=== PATIENT | female | born 1935 | race Caucasian/White ===

== ENCOUNTER 2018-09-11 18:32 | Inpatient (IN) | payer MEDICARE, BC ==
[~2018-09-11] VITALS: Ht 167.6 cm; Wt 64.7 kg
[~2018-09-11 18:32] MED LIST: CALC-20 PO; DONE5TAB34 PO; QUET25TA PO
--- NOTE | 2018-09-11 18:40 | NUR ---
CYNTHIA FOWLER fron SNF for SP fall, eval for BLE. Patient is awake, but unable to assess orientation at this time, tracks voice and smiles but does not follow commands.
--- NOTE | 2018-09-11 19:05 | NUR ---
RECEIVED REPORT FROM ERVIN LARA FOR DIPAK. PT IS AAOX0, NOT IN RESPIRATORY DISTRESS, V/S STABLE, WILL CONTINUE TO MONITOR.
--- NOTE | 2018-09-11 19:08 | NUR ---
SEEN AND EXAMINED BY DR. MANNING.
--- NOTE | 2018-09-11 19:22 | NUR ---
URINE SPECIMEN OBTAINED VIA STRAIGHT CATH.
[2018-09-11 19:25] LABS: APPEARANCE,URINE Clear (CLEAR); BILIRUBIN,URINE Negative (NEGATIVE); BLOOD, URINE Negative Ery/uL (NEGATIVE); COLOR,URINE Yellow (YELLOW); KETONES,URINE Negative (NEGATIVE); LEUKOCYTE ESTERASE ,URINE Negative (NEGATIVE); NITRITE, URINE Negative (NEGATIVE); PH,URINE 5.5 (5.0-8.0); PROTEIN,URINE 30 mg/dl (NEGATIVE); UGLUCOSE Negative (NEGATIVE); UROBILINOGEN,URINE 0.2 EU/dL (0.2)
[2018-09-11 19:34] LABS: BACTERIA,URINE None seen /HPF (None Seen); RBC,URINE 0-2 /HPF (0-2); SQUAMOUS EPITHELIAL CELL,UR Few /HPF (None Seen); WBC,URINE 0-2 /HPF (0-3)
--- NOTE | 2018-09-11 19:35 | NUR ---
VETERINARY SURGEON AT BEDSIDE FOR XRAY.
--- NOTE | 2018-09-11 20:10 | NUR ---
IV LINE ESTABLISHED, BLOOD DRAW AND SENT TO LAB.
[2018-09-11 20:14] LABS: BASOPHILS # (AUTO) 0.1 /CMM (0.0-0.2); BASOPHILS % (AUTO) 0.7 % (0.0-2.0); EOSINOPHILS % (AUTO) 0.9 % (0.0-6.0); HEMATOCRIT 40 % (33-45); HEMOGLOBIN 13.1 g/dL (11.5-14.8); LYMPHOCYTES # (AUTO) 2.1 /CMM (0.8-4.8); LYMPHOCYTES % (AUTO) 13.5 % (20.0-44.0); MEAN CORPUSCULAR HGB CONC 33 g/dl (31.0-36.0); MEAN CORPUSCULAR VOLUME 84 fL (82-100); MONOCYTES # (AUTO) 1.2 /CMM (0.1-1.30); MONOCYTES % (AUTO) 7.7 % (2.0-12.0); NEUTROPHILS # (AUTO) 11.9 /CMM (1.8-8.9); NEUTROPHILS % (AUTO) 77.2 % (43.0-81.0); PLATELET COUNT (AUTO) 206 /CMM (150-450); RED BLOOD CELL COUNT(AUTO) 4.77 MIL/uL (4.0-5.2); WHITE BLOOD COUNT (AUTO) 15.4 K/uL (4.3-11.0)
[2018-09-11 20:38] LABS: CARBON DIOXIDE 21 mmol/L (21-32); CHLORIDE 107 mmol/L (98-107); CREATININE 1.1 mg/dL (0.6-1.3); GLUCOSE 166 mg/dL (74-106); POTASSIUM 3.8 mmol/L (3.5-5.1); SODIUM SERUM 142 mmol/L (136-145); UREA NITROGEN, BLOOD 24 mg/dL (7-18)
--- NOTE | 2018-09-11 20:41 | NUR ---
PT ASSIGNED TO 309-1
--- NOTE | 2018-09-11 20:48 | NUR ---
REPORT GIVEN TO AIDA FOR DIPAK.
--- NOTE | 2018-09-11 20:50 | NUR ---
SEEN AND EXAMINED BY DR. FINN.
[2018-09-11] MEDS ORDERED: MORPHINE SULFATE INJ 2 MG/ML DISP.SYRIN IV PRN (21:00)
[2018-09-11] MEDS ORDERED: ONDANSETRON HCL/PF 4 MG/2 ML VIAL IVP PRN (21:00)
[2018-09-11] MEDS ORDERED: ACETAMINOPHEN 650 MG/SUPP.RECT RC PRN (21:00)
[2018-09-11] MEDS ORDERED: ENOXAPARIN SODIUM 40 MG/0.4 ML DISP.SYRIN SQ SCH (21:00)
[2018-09-11 21:05] VITALS: BP 107/50
--- NOTE | 2018-09-11 21:20 | NUR ---
MORTGAGE LOAN ASSISTANT NOTES PATIENT ARRIVED ON THE UNIT AT 2109. PATIENT IS CROATIAN SPEAKING. PATIENT IS MOSTLY UNRESPONSIVE WHEN ASKED QUESTIONS. PATIENT JUST STARES AT ME. PATIENT MUMBLES TO HERSELF. SO SIGNS OF RESPIRATORY DISTRESS. NO SIGNS OF SOB. NO FACIAL GRIMACING INDICATING PAIN AT THIS TIME. SAFETY PRECAUTIONS IMPLEMENTED. CALL LIGHT WITHIN REACH. WILL CONTINUE TO MONITOR THROUGHOUT THE SHIFT.
[2018-09-11 21:55] VITALS: BP 107/50
[2018-09-11] MEDS: IV D5/0.45 NACL 1,000 ML IV PRN (23:32)
--- NOTE | 2018-09-12 00:53 | NUR ---
RN NOTES PATIENT IS UNRESPONSIVE WHEN I AM TALKING TO HER. I WAS SPEAKING IN BOTH BENGALI AND ARMENIAN. PATIENT HAS FLAT AFFECT. PATIENT MUMBLES AT TIMES WHEN LEFT ALONE. WILL CONTINUE TO MONITOR PATIENT.
--- NOTE | 2018-09-12 00:54 | NUR ---
RN NOTES PATIENT DOES NOT SPEAK CHILEAN. PATIENT UNDERSTANDS MALAGASY. PATIENT RESPONDS "YES OR NO" TO EVERY QUESTION ALTHOUGH SOME QUESTIONS DO NOT PERTAIN TO YES/NO. PATIENT HAS FLAT AFFECT. WILL CONTINUE TO MONITOR PATIENT.
[2018-09-12 02:21] VITALS: BP 126/53
--- NOTE | 2018-09-12 04:30 | NUR ---
RN NOTES FAMILY CONSENT FROM DAUGHTERMEGAN, OBTAINED VIA TELEPHONE. ERVIN AGUILLON AND ERVIN PARRA VERIFIED CONSENT FOR LEFT HIP HEMIARTHROPLASTY PROCEDURE, ANESTHESIA, BLOOD TRANSFUSION. DAUGHTERMEGAN, WILL VISIT BEFORE THE PROCEDURE. CONTACT # IS [phone]. WILL ENDORSE TO ONCOMING SHIFT.
--- NOTE | 2018-09-12 06:14 | NUR ---
RN CLOSING NOTES PATIENT IS RESTING COMFORTABLY IN BED AT THIS TIME. NO SIGNS OF RESPIRATORY DISTRESS. NO SIGNS OF SOB. NO SIGNS OF FACIAL GRIMACING AT THIS TIME. IV SITE IS INTACT, PATENT, RUNNING WELL. SKIN IS INTACT. ALL NEEDS MET. ALL MEDS GIVEN AT THIS TIME. SAFETY PRECAUTIONS IMPLEMENTED. CALL LIGHT WITHIN REACH. CONSENT FOR LEFT HIP HEMIARTHROPLASTY PROCEDURE, BLOOD TRANSFUSION, AND ANESTHESIA WAS OBTAINED AT 0430 VIA PHONE VERIFICATION FROM 2 RN'S, AIDA AND HENNA WITNESSING CONSENT FROM DAUGHTER, MEGAN RENDON. WILL ENDORSE TO AM SHIFT FOR CONTINUITY OF CARE.
[2018-09-12 06:19] LABS: BASOPHILS # (AUTO) 0.1 /CMM (0.0-0.2); BASOPHILS % (AUTO) 0.9 % (0.0-2.0); EOSINOPHILS % (AUTO) 2.1 % (0.0-6.0); HEMATOCRIT 38 % (33-45); LYMPHOCYTES # (AUTO) 1.7 /CMM (0.8-4.8); LYMPHOCYTES % (AUTO) 14.6 % (20.0-44.0); MEAN CORPUSCULAR HGB CONC 32 g/dl (31.0-36.0); MEAN CORPUSCULAR VOLUME 83 fL (82-100); MONOCYTES # (AUTO) 1.1 /CMM (0.1-1.30); MONOCYTES % (AUTO) 9.1 % (2.0-12.0); NEUTROPHILS # (AUTO) 8.5 /CMM (1.8-8.9); NEUTROPHILS % (AUTO) 73.3 % (43.0-81.0); PLATELET COUNT (AUTO) 176 /CMM (150-450); RED BLOOD CELL COUNT(AUTO) 4.54 MIL/uL (4.0-5.2); WHITE BLOOD COUNT (AUTO) 11.6 K/uL (4.3-11.0)
[2018-09-12 06:40] LABS: CALCIUM, SERUM 8.1 mg/dL (8.5-10.1); CARBON DIOXIDE 26 mmol/L (21-32); CHLORIDE 109 mmol/L (98-107); CREATININE 0.8 mg/dL (0.6-1.3); GLUCOSE 132 mg/dL (74-106); PHOSPHORUS 2.4 mg/dL (2.5-4.9); POTASSIUM 3.2 mmol/L (3.5-5.1); SODIUM SERUM 143 mmol/L (136-145); UREA NITROGEN, BLOOD 17 mg/dL (7-18)
[2018-09-12 06:46] LABS: MAGNESIUM 1.8 mg/dL (1.8-2.4)
[2018-09-12 06:47] LABS: CHOLESTEROL 163 mg/dL (<200); HDL CHOLESTEROL 42 mg/dL (40-60); LDL 101 mg/dL (0-99); THYROID STIMULATING HORMONE 2.272 uIU/mL (0.358-3.74); TRIGLYCERIDES 122 mg/dL (30-150)
--- NOTE | 2018-09-12 07:30 | NUR ---
RN OPENING NOTES RECEIVED PATIENT IN BED RESTING. A/OX1, NONVERBAL, UNABLE TO COMMUNICATE, FLAT AFFECT. NOT IN ANY FORM OF DISTRESS, NO SOB. NO S/S OF PAIN OR DISCOMFORT. IV ACCESS INTACT AND PATENT. KEPT PATIENT SAFE AND COMFORTABLE. BED IN LOW/LOCKED POSITION, SIDERAILS UP, CALL LIGHT IN REACH. WILL CONTINUE TO MONIOTR ACCORDNGLY. KEPT NPO, SCHEDULED FOR SURGERY AT 1100.
[2018-09-12 08:08] VITALS: BP 119/66
[2018-09-12] MEDS: FAMOTIDINE/PF INJ 20 MG/2 ML VIAL IV SCH ×2 (08:22→21:52)
[2018-09-12] MEDS: DONEPEZIL 5 MG TABLET PO SCH (09:00)
[2018-09-12] MEDS ORDERED: PANTOPRAZOLE 40 MG VIAL IV SCH (09:00)
[2018-09-12] MEDS ORDERED: NEXIUM 40 MG VIAL IV SCH (09:00)
[2018-09-12] MEDS: POTASSIUM CL. PREMIX PERIPHER. 50 ML IV SCH ×5 (10:11→18:11)
--- NOTE | 2018-09-12 10:30 | NUR ---
PATIENT'S DAUGHTER AT BEDSIDE. PATIENT WAS RESPONSIVE, SMILING, AND MAKING SOUNDS WHILE DAUGHTER IS TALKER TO HER. PER DAUGHTER, PATIENT ONLY RESPONDS TO THEM BUT NOT TO OTHER PEOPLE.
--- NOTE | 2018-09-12 10:35 | NUR ---
DEVAN CALDERON NP ON BEDSIDE MAKING ROUNDS.
[2018-09-12] MEDS ORDERED: BACITRACIN 50000 UNITS/VIAL ONE (10:42)
[2018-09-12] MEDS ORDERED: BUPIVACAINE 0.5 % PF 150 MG/30 ML VIAL ONE (10:42)
[2018-09-12] MEDS ORDERED: MIDAZOLAM HCL 2 MG/2ML VIAL ONE (10:58)
[2018-09-12] MEDS ORDERED: FENTANYL PF 250MCG/5ML AMPUL ONE ×2 (10:59)
[2018-09-12] MEDS ORDERED: FAMOTIDINE/PF INJ 20 MG/2 ML VIAL IV ONE (11:00)
[2018-09-12] MEDS ORDERED: ROCURONIUM BROMIDE 50 MG/5 ML ONE (11:00)
--- NOTE | 2018-09-12 11:30 | NUR ---
PATIENT GOT PICKED UP FOR SURGERY BY OR NURSE
[2018-09-12] MEDS ORDERED: POTASSIUM PHOSPHATE MM 7.5 MMOL in IV D5W 100 ML IV SCH (12:00)
[2018-09-12] MEDS ORDERED: TRANEXAMIC ACID 1,000 MG in SODIUM CHLORIDE IRRIG SOLUTION 90 ML IR ONE (12:30)
[2018-09-12 15:00] VITALS: BP 118/61
--- NOTE | 2018-09-12 15:00 | NUR ---
RN NOTES: POST OP PATIENT CAME BACK FROM SURGERY ACCOMPANIED BY OR NURSE, LUDIN BRICEÑO. PATIENT IN STABLE CONDITION, VITAL SIGNS WNL, PATIENT IS SEDATED. SCD PUMPS IN PLACE. SHELTON CATH IN PLACE DRAINING CLEAR YELLOW URINE. 3LPM O2 VIA NC, SATTING 94%. WILL MONIOTR ACCORDINGLY.
--- NOTE | 2018-09-12 15:02 | NUR ---
BP= 118/61, P=93, 98.2, 94% ON 3LPM OS VIA NC.
--- NOTE | 2018-09-12 15:15 | NUR ---
patient arousable to verbal and tactile stimuli. vs wnl. will continue to monitor accordingly.
[2018-09-12 15:30] VITALS: BP 122/84
[2018-09-12] MEDS: IV D5/0.45 NACL 1,000 ML IV PRN (15:57)
[2018-09-12 16:30] VITALS: BP 119/80
[2018-09-12] MEDS: QUETIAPINE FUMARATE 25 MG TABLET PO SCH (17:49)
[2018-09-12] MEDS: CALCIUM CARB 600MG /VIT D 1 EACH TABLET PO SCH (17:49)
--- NOTE | 2018-09-12 19:45 | NUR ---
RN MS OPENING NOTES RECEIVED PATIENT IN BED ASLEEP. AROUSABLE TO NAME. A/O X0, VERY LITTLE TO NO WORDS. S/P LEFT HIP HEMIARTHROPLASTY. BREATHING EVEN AND UNLABORED. NO SOB NOTED. TOLERATING ROOM AIR. IV ON RIGHT HAND AND LEFT AC INTACT AND PATENT. SKIN DRY AND WARM TO TOUCH. AFEBRILE. NO S/S OF PAIN OR DISCOMFORT. NO FACIAL GRIMACING. ALL OTHER NEEDS MET. SAFETY MEASURES IN PLACE. CALL LIGHT WITHIN REACH. WILL CONTINUE TO MONITOR.
[2018-09-12] MEDS: ANCEF 1 GM/50 ML D5W IV SCH ×2 (19:53)
[2018-09-12 20:00] VITALS: BP 124/59
[2018-09-13] MEDS: ANCEF 1 GM/50 ML D5W IV SCH ×4 (04:27→11:45)
[2018-09-13 06:28] LABS: BASOPHILS % (AUTO) 0.4 % (0.0-2.0); EOSINOPHILS % (AUTO) 0.9 % (0.0-6.0); HEMATOCRIT 34 % (33-45); LYMPHOCYTES # (AUTO) 1.7 /CMM (0.8-4.8); LYMPHOCYTES % (AUTO) 13.4 % (20.0-44.0); MEAN CORPUSCULAR HGB CONC 33 g/dl (31.0-36.0); MEAN CORPUSCULAR VOLUME 84 fL (82-100); MONOCYTES # (AUTO) 1.4 /CMM (0.1-1.30); MONOCYTES % (AUTO) 10.8 % (2.0-12.0); NEUTROPHILS # (AUTO) 9.8 /CMM (1.8-8.9); NEUTROPHILS % (AUTO) 74.5 % (43.0-81.0); PLATELET COUNT (AUTO) 136 /CMM (150-450); RED BLOOD CELL COUNT(AUTO) 4.05 MIL/uL (4.0-5.2); WHITE BLOOD COUNT (AUTO) 13.1 K/uL (4.3-11.0)
[2018-09-13 06:54] LABS: CALCIUM, SERUM 7.7 mg/dL (8.5-10.1); CARBON DIOXIDE 25 mmol/L (21-32); CHLORIDE 108 mmol/L (98-107); CREATININE 0.8 mg/dL (0.6-1.3); GLUCOSE 134 mg/dL (74-106); MAGNESIUM 1.6 mg/dL (1.8-2.4); PHOSPHORUS 2.4 mg/dL (2.5-4.9); POTASSIUM 4.2 mmol/L (3.5-5.1); SODIUM SERUM 140 mmol/L (136-145); UREA NITROGEN, BLOOD 9 mg/dL (7-18)
--- NOTE | 2018-09-13 06:59 | NUR ---
RN MS CLOSING NOTES PATIENT RESTING IN BED. EASILY AROUSABLE TO VERBAL OR TACTILE STIMULI.. BREATHING EVEN AND UNLABORED. NO SOB NOTED. ON 2LPM OXYGEN VIA NC. IV ON RIGHT HAND AND LEFT AC INTACT AND PATENT WITH IVF. NO S/S OF PAIN OR DISCOMFORT. NO FACIAL GRIMACING. KEPT CLEAN DRY AND COMFORTABLE. PATIENT WITH SHELTON. INTACT AND DRAINING YELLOW URINE. ALL OTHER NEEDS MET. SAFETY MEASURES IN PLACE. CALL LIGHT WITHIN REACH. WILL ENDORSE TO ONCOMING NURSE FOR DIPAK.
--- NOTE | 2018-09-13 07:20 | NUR ---
RN OPENING NOTES RECEIVED PATIENT IN BED ASLEEP. AROUSABLE TO VERBAL AND TACTILE STIMULI. VERY LITTLE TO NO WORDS. NOT IN ANY FORM OF DISTRESS. BREATHING EVEN AND UNLABORED. NO SOB NOTED. TOLERATING ROOM AIR. IV ON RIGHT HAND AND LEFT AC INTACT AND PATENT. SKIN DRY AND WARM TO TOUCH. AFEBRILE. NO S/S OF PAIN OR DISCOMFORT. NO FACIAL GRIMACING. SAFETY MEASURES IN PLACE. BED LOCKED/LOW POSITION, SIDERAILS UP, BED ALARM ON, CALL LIGHT WITHIN REACH. WILL CONTINUE TO MONITOR.
[2018-09-13 08:00] VITALS: BP 139/84
--- NOTE | 2018-09-13 08:04 | NUR ---
RN NOTES: DIET CALLED [facility] FROM SNF WHERE PATIENT'S RESIDES, VERIFIED DIET. PER ANGEL, PATIENT IS ON REGULAR SOFT MECHANICAL DIET, AND NEEDS A FEEDING ASSISTANCE.
[2018-09-13] MEDS: DONEPEZIL 5 MG TABLET PO SCH (08:13)
[2018-09-13] MEDS: QUETIAPINE FUMARATE 25 MG TABLET PO SCH ×2 (08:13→17:22)
[2018-09-13] MEDS: CALCIUM CARB 600MG /VIT D 1 EACH TABLET PO SCH ×2 (08:13→17:22)
[2018-09-13] MEDS: FAMOTIDINE/PF INJ 20 MG/2 ML VIAL IV SCH ×2 (08:15→20:38)
--- NOTE | 2018-09-13 10:30 | NUR ---
RN NOTES PATIENT NOTED TO HAVE BLE EDEMA +1. VERIFIED WITH MALCOLM HOLM IF OK TO HAVE SCD ON. PER MALCOLM, OK TO HAVE SCDs ON COZ PATIENT IS S/P L HIP HEMIARTHPLSTY. VERIFIED ALSO WITH CHARGE NURSE CLAY. SCDs IN PLACE FOR DVT PROPHYLAXIS.
[2018-09-13] MEDS: IV D5/0.45 NACL 1,000 ML IV PRN (11:50)
[2018-09-13] MEDS: Magnesium 1GM/D5W 100ML PREMIX 100 ML IV SCH ×2 (12:20→13:54)
[2018-09-13] MEDS: ENOXAPARIN SODIUM 40 MG/0.4 ML DISP.SYRIN SQ SCH (12:22)
[2018-09-13] MEDS ORDERED: K PHOS NEUTRAL 250 MG TABLET PO ONE (13:00)
[2018-09-13 16:00] VITALS: BP 151/81
[2018-09-13 17:20] VITALS: BP 98/61
[2018-09-13] MEDS ORDERED: ACETAMINOPHEN 325 MG TABLET PO PRN (17:30)
--- NOTE | 2018-09-13 19:00 | NUR ---
RN NOTES IV ACCESS ON RIGHT HAND INFILTRATED. IV ACCESS REMOVED, WARM COMPRESS APPLIED, AND ELEVATED EXTREMITY. WILL MONITOR ACCORDINGLY
--- NOTE | 2018-09-13 19:28 | NUR ---
RN MS OPENING NOTES RECEIVED PATIENT IN BED ASLEEP. AROUSABLE TO NAME. A/O X0, VERY LITTLE TO NO WORDS. BREATHING EVEN AND UNLABORED. NO SOB NOTED. TOLERATING ROOM AIR. IV ON LEFT AC INTACT AND PATENT. SKIN DRY AND WARM TO TOUCH. AFEBRILE. NO S/S OF PAIN OR DISCOMFORT. NO FACIAL GRIMACING. ALL OTHER NEEDS MET. SAFETY MEASURES IN PLACE. CALL LIGHT WITHIN REACH. WILL CONTINUE TO MONITOR.
[2018-09-13 20:00] VITALS: BP 128/56
--- NOTE | 2018-09-14 03:11 | NUR ---
RN MS NOTES PATIENT'S IV ACCESS ON THE LEFT AC INFILTRATED. NEW IV LINE STARTED ON THE LEFT HAND G#20. INTACT AND PATENT. GOOD BLOOD RETURN.
[2018-09-14 06:01] LABS: BASOPHILS % (AUTO) 0.4 % (0.0-2.0); EOSINOPHILS % (AUTO) 1.9 % (0.0-6.0); HEMATOCRIT 33 % (33-45); HEMOGLOBIN 10.6 g/dL (11.5-14.8); LYMPHOCYTES # (AUTO) 1.6 /CMM (0.8-4.8); LYMPHOCYTES % (AUTO) 13.6 % (20.0-44.0); MEAN CORPUSCULAR HGB CONC 33 g/dl (31.0-36.0); MEAN CORPUSCULAR VOLUME 83 fL (82-100); MONOCYTES # (AUTO) 1.3 /CMM (0.1-1.30); MONOCYTES % (AUTO) 11.6 % (2.0-12.0); NEUTROPHILS # (AUTO) 8.4 /CMM (1.8-8.9); NEUTROPHILS % (AUTO) 72.5 % (43.0-81.0); PLATELET COUNT (AUTO) 187 /CMM (150-450); RED BLOOD CELL COUNT(AUTO) 3.92 MIL/uL (4.0-5.2); WHITE BLOOD COUNT (AUTO) 11.6 K/uL (4.3-11.0)
[2018-09-14 06:07] LABS: CALCIUM, SERUM 7.9 mg/dL (8.5-10.1); CARBON DIOXIDE 27 mmol/L (21-32); CHLORIDE 108 mmol/L (98-107); CREATININE 0.8 mg/dL (0.6-1.3); GLUCOSE 128 mg/dL (74-106); MAGNESIUM 2.2 mg/dL (1.8-2.4); POTASSIUM 3.7 mmol/L (3.5-5.1); SODIUM SERUM 142 mmol/L (136-145); UREA NITROGEN, BLOOD 9 mg/dL (7-18)
[2018-09-14] MEDS: IV D5/0.45 NACL 1,000 ML IV PRN ×2 (06:11→20:26)
--- NOTE | 2018-09-14 06:58 | NUR ---
RN MS CLOSING NOTES PATIENT RESTING IN BED. EASILY AROUSABLE TO VERBAL OR TACTILE STIMULI.. BREATHING EVEN AND UNLABORED. NO SOB NOTED. ON 2LPM OXYGEN VIA NC. IV ON LEFT HAND G#20 INTACT AND PATENT WITH IVF. NO S/S OF PAIN OR DISCOMFORT. NO FACIAL GRIMACING. KEPT CLEAN DRY AND COMFORTABLE. PATIENT WITH SHELTON. INTACT AND DRAINING CLEAR YELLOW URINE. ALL OTHER NEEDS MET. SAFETY MEASURES IN PLACE. CALL LIGHT WITHIN REACH. WILL ENDORSE TO ONCOMING NURSE FOR DIPAK.
--- NOTE | 2018-09-14 07:00 | NUR ---
RN OPENING NOTES PATIENT RESTING IN BED. EASILY AROUSABLE TO VERBAL OR TACTILE STIMULI.. BREATHING EVEN AND UNLABORED. NO SOB NOTED. ON 2LPM OXYGEN VIA NC. IV ON LEFT HAND G#20 INTACT AND PATENT WITH IVF. NO S/S OF PAIN OR DISCOMFORT. NO FACIAL GRIMACING. KEPT CLEAN DRY AND COMFORTABLE. PATIENT WITH SHELTON, INTACT AND DRAINING CLEAR YELLOW URINE. SAFETY MEASURES IN PLACE.BED LOW/LOCKED POSITION, CALL LIGHT WITHIN REACH. SIDERAILS UP, ABDUCTOR PILLOW IN PLACE. SCD PUMPS IN PLACE. WILL MONIOTR ACCORDINGLY
[2018-09-14 08:00] VITALS: BP 126/56
--- NOTE | 2018-09-14 08:20 | NUR ---
REMOVED SHELTON, PATIENT TOLERATED WELL. NO COMPLICATIONS
[2018-09-14] MEDS: DONEPEZIL 5 MG TABLET PO SCH (08:23)
[2018-09-14] MEDS: CALCIUM CARB 600MG /VIT D 1 EACH TABLET PO SCH ×2 (08:24→18:09)
[2018-09-14] MEDS: FAMOTIDINE/PF INJ 20 MG/2 ML VIAL IV SCH ×2 (08:24→21:09)
[2018-09-14] MEDS: QUETIAPINE FUMARATE 25 MG TABLET PO SCH ×2 (08:24→18:09)
[2018-09-14] MEDS: ENOXAPARIN SODIUM 40 MG/0.4 ML DISP.SYRIN SQ SCH (08:25)
--- NOTE | 2018-09-14 13:00 | NUR ---
RN NOTES: PHYSICAL THERAPY PER PT, LOLY, UNABLE TO STAND THE PATIENT DUE TO PATIENT NOT FOLLOWING COMMANDS
[2018-09-14 16:00] VITALS: BP 128/59
--- NOTE | 2018-09-14 19:23 | NUR ---
RN CLOSING NOTES PATIENT IN STABLE CONDITION. ALL NEED ATTENDED AND PROVIDED. ALL DUE MEDS GIVEN ORDERED. TURNED AND REPOSITIONED PATIENT EVERY 2 HRS NEEDED. ABDUCTOR PILLOW IN PLACE. KEPT PATIENT SAFE AND COMFORTABLE. BED IN LOW/LOCKED POSITION, SIDERAILS UP, CALL LIGHT IN REACH. ENDORSED TO NIGHT RN FOR DIPAK. DAUGHTER AT BEDSIDE
--- NOTE | 2018-09-14 19:38 | NUR ---
MS/RN RECEIVE PATIENT AWAKE, NON VERBALLY RESPONSIVE, FLAT AFFECT, DAUGHTER AT BEDSIDE FEEDING THE PATIENT, APPEAR COMFORTABLE, NO SIGNS OF DISTRESS NOTED, WILL MONITOR.
[2018-09-14 21:27] VITALS: BP 113/53
--- NOTE | 2018-09-14 21:34 | NUR ---
MS/RN FOUND IV PULLED OUT, INSERTED NEW IV AT LEFT F/A.
--- NOTE | 2018-09-15 00:26 | NUR ---
MS/RN PATIENT IS SLEEPING AT THIS TIME, AROUSABLE, APPEAR COMFORTABLE, NO DISTRESS NOTED, CALL LIGHT IN REACH. WITHIN REACH. WILL CONTINUE TO MONITOR.
--- NOTE | 2018-09-15 06:07 | NUR ---
MS/RN PATIENT IS STILL SLEEPING AT THIS TIME, APPEAR COMFORTABLE, NO SIGNS OF DISTRESS NOTED, CALL LIGHT IN REACH. ALL NEEDS ATTENDED AT THIS TIME, WILL CONTINUE TO MONITOR.
--- NOTE | 2018-09-15 07:30 | NUR ---
RN MS NOTES PT IN BED, AWAKE, MAKES EYE CONTACT WHEN NAME IS CALLED, NON VERBAL, NO SIGN OF PAIN OR DISTRESS, CALL LIGHT WITHIN REACH, IV FLUIDS INFUSING WELL, KEPT WARM AND COMFORTABLE IN BED.
[2018-09-15 08:00] VITALS: BP 141/51
[2018-09-15] MEDS: FAMOTIDINE/PF INJ 20 MG/2 ML VIAL IV SCH (08:33)
[2018-09-15] MEDS: CALCIUM CARB 600MG /VIT D 1 EACH TABLET PO SCH ×2 (08:33→16:08)
[2018-09-15] MEDS: QUETIAPINE FUMARATE 25 MG TABLET PO SCH ×2 (08:33→16:08)
[2018-09-15] MEDS: DONEPEZIL 5 MG TABLET PO SCH (08:33)
[2018-09-15] MEDS: ENOXAPARIN SODIUM 40 MG/0.4 ML DISP.SYRIN SQ SCH (08:35)
--- NOTE | 2018-09-15 12:30 | NUR ---
RN MS NOTES PT IN BED, AWAKE, NOT IN DISTRESS, NO FACIAL GRIMACING OR MOANING, SEEN BY DR. DUNCAN, DISCHARGE ORDER GIVEN, KEPT CLEAN AND DRY, PERINEAL CARE PROVIDED, NEEDS ATTENDED.
[2018-09-15 16:00] VITALS: BP 121/68
--- NOTE | 2018-09-15 18:00 | NUR ---
RN MS NOTES PT IN BED, AWAKE, ALERT TO SELF, NO SIGN OF PAIN OR DISTRESS, CALL LIGHT WITHIN REACH, PM CARE PROVIDED, ASSISTED WITH DINNER, DISCHARGE ORDER GIVEN BY DR. DUNCAN, DISCHARGE AND MEDICATION INSTRUCTIONS PROVIDED TO ADMITTING NURSE EDWARD MUELLER OF [facility], BELONGINGS ACCOUNTED FOR, SKIN CHECK DONE, NO BLEEDING OR DISCHARGE NOTED TO SURGERY SITE AT LEFT HIP, NATHANIEL INTACT, PICKED UP BY 2 AMBULANCE PERSONNEL, LEFT VIA GUERNEY IN STABLE CONDITION.
== END 2018-09-15 18:08 | DRG 469 ==
LOC: ER 18:35 → MED 20:48
PROVIDERS: ATTEND Internal Medicine
PROC: 0SRS0JZ Replacement of Left Hip Joint, Femoral Surface with Synthetic Substitute, Open Approach (ICD-10-PCS; principal; 2018-09-12)
DX: M84.452A Pathological fracture, left femur, initial encounter for fracture (principal); G93.41 Metabolic encephalopathy; N17.9 Acute kidney failure, unspecified; G30.9 Alzheimer's disease, unspecified; F02.80 Dementia in other diseases classified elsewhere, unspecified severity, without behavioral disturbance, psychotic disturbance, mood disturbance, and anxiety; E78.5 Hyperlipidemia, unspecified; D72.829 Elevated white blood cell count, unspecified; E87.6 Hypokalemia; W18.30XA Fall on same level, unspecified, initial encounter; Y92.129 Unspecified place in nursing home as the place of occurrence of the external cause; F32.9 Major depressive disorder, single episode, unspecified; E55.9 Vitamin D deficiency, unspecified
CPT/HCPCS: 36415; 71045-TC; 72170-TC; 73020; 73502; 80048-TC; 80061-TC; 81000-TC; 83735-TC; 84100-TC; 84443-TC; 85025-TC; 85610-TC; 85730-TC; 86850-TC; 87081-TC; 88305-TC; 92526; 92611-TC; 93307-TC; 94799-TC; 97110-TC; 97112-TC; 97530-TC; A4217; A6209; G0378; J0690; J1650; J2250; J2405; J2704; J2710; J2765; J3010; J3475; J3480; J3490; J7060; L1830

== ENCOUNTER 2018-10-04 14:38 | Emergency (ER) | payer MEDICARE, BC ==
[~2018-10-04] VITALS: Ht 165.1 cm; Wt 64.9 kg
--- NOTE | 2018-10-04 14:44 | NUR ---
PT ROBINSON FROM SNF FOR UNWITNESSED FALL; PT AAOX0, VERBALLY RESPONSIVE, PT ON MONITOR, VSS, NAD NOTED, PENDING MD CRUMP
[2018-10-04] MEDS ORDERED: TYL2T PO (15:03)
[2018-10-04] MEDS ORDERED: BISA10SU61 RC (15:03)
[2018-10-04] MEDS ORDERED: TRAM50TA PO (15:03)
[2018-10-04] MEDS ORDERED: MAGN400O6 GT (15:03)
[2018-10-04] MEDS ORDERED: ESCI5TAB PO (15:03)
[2018-10-04] MEDS ORDERED: DOCU-141 PO (15:03)
[2018-10-04] MEDS ORDERED: ENOX40DI SQ (15:03)
[2018-10-04] MEDS ORDERED: NA P133E RC (15:03)
[2018-10-04] MEDS ORDERED: FAMO-131 PO (15:03)
[2018-10-04 15:05] LABS: BASOPHILS # (AUTO) 0.1 /CMM (0.0-0.2); BASOPHILS % (AUTO) 0.7 % (0.0-2.0); EOSINOPHILS % (AUTO) 1.9 % (0.0-6.0); HEMATOCRIT 41 % (33-45); LYMPHOCYTES % (AUTO) 22.5 % (20.0-44.0); MEAN CORPUSCULAR HGB CONC 32 g/dl (31.0-36.0); MEAN CORPUSCULAR VOLUME 83 fL (82-100); MONOCYTES # (AUTO) 0.6 /CMM (0.1-1.30); MONOCYTES % (AUTO) 6.5 % (2.0-12.0); NEUTROPHILS # (AUTO) 6.1 /CMM (1.8-8.9); NEUTROPHILS % (AUTO) 68.4 % (43.0-81.0); PLATELET COUNT (AUTO) 400 /CMM (150-450); WHITE BLOOD COUNT (AUTO) 8.9 K/uL (4.3-11.0)
[2018-10-04 15:15] LABS: CALCIUM, SERUM 9.2 mg/dL (8.5-10.1); CARBON DIOXIDE 27 mmol/L (21-32); CHLORIDE 105 mmol/L (98-107); GLUCOSE 121 mg/dL (74-106); POTASSIUM 4.1 mmol/L (3.5-5.1); SODIUM SERUM 141 mmol/L (136-145); UREA NITROGEN, BLOOD 21 mg/dL (7-18)
[2018-10-04 15:29] LABS: ALANINE AMINOTRANSFERASE 30 U/L (12-78); ALBUMIN 2.9 g/dL (3.4-5.0); ALKALINE PHOSPHATASE 126 U/L (46-116); ASPARTATE AMINOTRANSFERASE 23 U/L (15-37); BILIRUBIN,TOTAL 0.3 mg/dL (0.2-1.0); TOTAL PROTEIN, SERUM 7.4 g/dL (6.4-8.2)
[2018-10-04] MEDS ORDERED: IV NS 0.9% 1,000 ML IV ONE (15:30)
--- NOTE | 2018-10-04 16:25 | NUR ---
CALLED [facility] FOR TRANSPORT BACK TO [facility], ETA 1900, TRIP# [id number]
--- NOTE | 2018-10-04 16:39 | NUR ---
REPORT GIVEN TO DESTINY BATISTA AT [facility] AWARE OF PT'S D/C
--- NOTE | 2018-10-04 21:12 | NUR ---
PT D/C BACK TO [facility]IA [facility]ANCE, PT IN STABLE CONDITION, VSS, NAD NOTED, PT LEFT VIA GURNEY, ALL PPW WITH AMB STAFF. REPORT GIVEN.
[2018-10-04 21:13] VITALS: BP 134/55
== END 2018-10-04 21:14 ==
LOC: ER 14:38
DX: I48.91 Unspecified atrial fibrillation (principal); E86.0 Dehydration; R51 Headache; G30.9 Alzheimer's disease, unspecified; F02.80 Dementia in other diseases classified elsewhere, unspecified severity, without behavioral disturbance, psychotic disturbance, mood disturbance, and anxiety; E78.5 Hyperlipidemia, unspecified; E55.9 Vitamin D deficiency, unspecified; W18.39XA Other fall on same level, initial encounter; Y93.89 Activity, other specified; Y92.89 Other specified places as the place of occurrence of the external cause; Y99.8 Other external cause status
CPT/HCPCS: 36415; 70450; 71045; 72125; 80048; 80076; 82550; 83605; 84484; 85025; 85730; 87040 ×2; 93005; 96360; 99285; J7030